=== PATIENT | male | born 1980 | race Hispanic/Latino ===

== ENCOUNTER 2021-12-06 11:43 | Emergency (ER) | payer SELFPAY ==
--- NOTE | 2021-12-06 12:28 | Event Note ---
ED Screening Note Date of service: 12/06/21 Time: 12:25 ED Screening Note: 41-year-old male presents to the ED complaining left groin pain radiating to the testicle. Patient states this pain is a 10 out of 10. Patient is unable to describe pain. He states that the pain is constant. He has tried [id number] medication and has tried to wrap it. Denies any injury. No acute distress noted no ill appearance no This initial assessment/diagnostic orders/clinical plan/treatment(s) is/are subject to change based on patients health status, clinical progression and re- assessment by fellow clinical providers in the ED. Further treatment and workup at subsequent clinical providers discretion. Patient/guardian urged not to elope from the ED as their condition may be serious if not clinically assessed and managed. Initial orders include: Labs and ultrasound
[2021-12-06] MEDS ORDERED: oxyCODONE /ACETAMINOPHEN 5-325MG TAB PO ONE (12:44)
--- NOTE | 2021-12-06 12:44 | Emergency Department Report ---
ED Male HPI - General Chief complaint: Abdominal Pain Stated complaint: HERNIA Time Seen by Provider: 12/06/21 12:31 Source: patient Mode of arrival: Ambulatory Limitations: No Limitations - History of Present Illness Initial comments: Chief complaint: Groin pain HPI: This 41-year-old male without significant past medical history who was at left groin pain and bulging for the last 2 days. He performs lifting and bending at work. 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 He has had normal bowel movements. He has severe pain at the area of the hernia. He has had intact appetite. No vomiting. Ted wrap did provide some relief. MD Complaint: groin pain -: Gradual, days(s) (2) Location: left inguinal region Severity scale (0 -10): 10 Consistency: constant Improves with: other (ted wrap) Worsens with: none, movement denies other symptoms - Related Data Previous Rx's Medication Instructions Recorded Last Taken Type Docusate Sodium [Colace] 100 mg PO BID 15 Days #30 capsule 12/06/21 Unknown Rx oxyCODONE /ACETAMINOPHEN [Percocet 1 tab PO Q6HR PRN #15 tablet 12/06/21 Unknown Rx 5/325] Allergies Allergy/AdvReac Type Severity Reaction Status Date / Time No Known Allergies Allergy Verified 12/06/21 11:50 ED Review of Systems ROS: Stated complaint: HERNIA Other details as noted in HPI Comment: All other systems reviewed and negative Constitutional: denies: chills, fever, malaise Respiratory: denies: cough, shortness of breath Cardiovascular: denies: chest pain Gastrointestinal: denies: abdominal pain, nausea, vomiting Genitourinary: denies: discharge, testicular pain, testicular mass ED Past Medical Hx - Past Medical History Previous Medical History?: No - Surgical History Past Surgical History?: No - Medications Home Medications: Home Medications Medication Instructions Recorded Confirmed Last Taken Type Docusate Sodium [Colace] 100 mg PO BID 15 Days #30 capsule 12/06/21 Unknown Rx oxyCODONE /ACETAMINOPHEN [Percocet 1 tab PO Q6HR PRN #15 tablet 12/06/21 Unknown Rx 5/325] ED Physical Exam - General Limitations: No Limitations General appearance: alert, in no apparent distress - Head Head exam: Present: atraumatic, normocephalic - Eye Eye exam: Present: normal appearance - ENT ENT exam: Present: mucous membranes moist - Neck Neck exam: Present: normal inspection, full ROM - Respiratory Respiratory exam: Present: normal lung sounds bilaterally. Absent: respiratory distress, wheezes, rales, rhonchi - Cardiovascular Cardiovascular Exam: Present: regular rate, normal rhythm, normal heart sounds. Absent: systolic murmur, diastolic murmur, rubs, gallop - GI/Abdominal GI/Abdominal exam: Present: soft, normal bowel sounds. Absent: distended, tenderness, guarding - Rectal Rectal exam: Present: deferred - exam: Present: circumcision, other (3 to 4 cm reducible soft left inguinal hernia). Absent: testicular tenderness, urethral discharge, scrotal swelling, vertical testicular lie External exam: Present: normal external exam. Absent: erythema, swelling, lesions, lacerations, ecchymosis, bleeding - Extremities Exam Extremities exam: Present: normal inspection - Back Exam Back exam: Present: normal inspection - Neurological Exam Neurological exam: Present: alert, oriented X3 - Psychiatric Psychiatric exam: Present: normal affect, normal mood - Skin Skin exam: Present: warm, dry, intact, normal color. Absent: rash ED Course Vital Signs 12/06/21 11:51 Temperature 98.3 F Pulse Rate 94 H Respiratory 16 Rate Blood Pressure 119/89 [Left] O2 Sat by Pulse 95 Oximetry ED Medical Decision Making - Medical Decision Making Soft reducible left inguinal hernia without incarceration prescribed Percocet and Colace referred to general surgeon. Recommended ice self reduction. Critical care attestation.: If time is entered above; I have spent that time in minutes in the direct care of this critically ill patient, excluding procedure time. ED Disposition Clinical Impression: Left inguinal hernia Disposition: HOME / SELF CARE / HOMELESS Is pt being admited?: No Does the pt Need Aspirin: No Condition: Stable Instructions: Inguinal Hernia, Adult, [id number] Prescriptions: Docusate Sodium [Colace] 100 mg PO BID 15 Days #30 capsule oxyCODONE /ACETAMINOPHEN [Percocet 5/325] 1 tab PO Q6HR PRN #15 tablet PRN Reason: Pain Referrals: ALEXANDRIA HERNANDES DO [Staff Physician] - 3-5 Days DENISE LCUERO MD [Staff Physician] - 3-5 Days
[2021-12-06] MEDS ORDERED: DOCUSATE SODIUM 100 MG CAP PO ONE (12:45)
[2021-12-06 13:13] VITALS: BP 130/72
== END 2021-12-06 13:13 | disposition home or self-care (01) ==
LOC: ED 11:43
DX: K40.90 Unilateral inguinal hernia, without obstruction or gangrene, not specified as recurrent (principal)
CPT/HCPCS: 99282